=== PATIENT | female | born 1985 | race Caucasian/White ===

== ENCOUNTER 2021-01-05 07:50 | Outpatient (CLI) | payer OTHER, SELFPAY ==
--- NOTE | ~2021-01-05 | XR_ITS ---
EXAMINATION: XR barium swallow modified EXAM DATE: 01/05/2021 09:05 INDICATION: Globus sensation. Dysphagia. TECHNIQUE: Modified barium esophagram was performed by speech pathologist with radiologist Dr. Jeromy Harris present to administered fluoroscopy. Speech pathologist administered barium in varying consis tencies as per speech pathologist documentation. This was recorded on tape. There was total fluorosc opic time of 0.7. The DAP for this procedure was 0.5 Gycm2. A total of 3 images obtained for the ex am. FINDINGS: Oral stage: Adequate function. Pharyngeal phase: Adequate function. Laryngeal penetration: None. Aspiration: None. Laryngeal sensitivity: Present. IMPRESSION: Normal modified esophagram exam. Please refer to speech pathologist findings and specifi c feeding recommendations. Reviewed, dictated and finalized at location A. IMPRESSION: Normal modified esophagram exam. Please refer to speech pathologis t findings and specific feeding recommendations.
--- NOTE | 2021-01-05 14:52 | STOPEVAL ---
MODIFIED BARIUM SWALLOW EVALUATION: Thank you for referring Ruby Stafford to [facility]– [place].? Attending Provider: Nayla Patricia, FAX #: [phone] *ST Outpatient Evaluation Outpatient Past Medical History Past Medical History Source of Past Medical History Patient Endocrine History Hx Other Endocrine Disorders Yes: Mirza Modified Barium Swallow Evaluation Recent Swallowing History Reports Dysphagia Yes: I have residue with solids History of Dysphagia No Duration of Dysphagia year and a half Other Related History Had an EGD: negative Other Factors Impacting Dysphagia None History of Pneumonia No Reported Difficult Consistencies Solids Intake Method Prior to Swallow Oral Evaluation Diet Prior to Swallow Evaluation Regular, Level 7 Liquid Consistency Prior to Swallow Thin (0) Evaluation Consistency Solid Consistency Method of Presentation Spoon Oral Preparatory Symptoms None Oral Phase Symptoms None Pharyngeal Phase Symptoms None Severity of Vallecular Residue None - 0% No Residue Severity of Pyriform Sinus Residue None - 0% No Residue 8 Point Laryngeal Penetration-Aspiration Material Does Not Enter Airway Scale Cervical/Esophageal Symptoms None Mixed Consistency Method of Presentation Spoon Oral Preparatory Symptoms None Oral Phase Symptoms None Pharyngeal Phase Symptoms None Severity of Vallecular Residue None - 0% No Residue Severity of Pyriform Sinus Residue None - 0% No Residue 8 Point Laryngeal Penetration-Aspiration Material Does Not Enter Airway Scale Cervical/Esophageal Symptoms None Pureed Consistency Method of Presentation Spoon Oral Preparatory Symptoms None Oral Phase Symptoms None Pharyngeal Phase Symptoms None Severity of Vallecular Residue None - 0% No Residue Severity of Pyriform Sinus Residue None - 0% No Residue 8 Point Laryngeal Penetration-Aspiration Material Does Not Enter Airway Scale Cervical/Esophageal Symptoms None Thin Uncontrolled 2 Method of Presentation Straw Oral Preparatory Symptoms None Oral Phase Symptoms None Pharyngeal Phase Symptoms None Severity of Vallecular Residue None - 0% No Residue Severity of Pyriform Sinus Residue None - 0% No Residue 8 Point Laryngeal Penetration-Aspiration Material Does Not Enter Airway Scale Cervical/Esophageal Symptoms None Thin Uncontrolled 1 Method of Presentation Cup Oral Preparatory Symptoms None Oral Phase Symptoms None Pharyngeal Phase Symptoms None Severity of Vallecular Residue None - 0% No Residue Severity of Pyriform Sinus Residue None - 0% No Residue 8
== END 2021-01-05 07:51 | disposition home or self-care (01) ==
PROVIDERS: PCP Internal Medicine; Visit Provider Internal Medicine
DX: R13.10 Dysphagia, unspecified (principal)
CPT/HCPCS: 92611